=== PATIENT | female | born 1990 | race American Indian/Alaskan Native ===

== ENCOUNTER 2019-09-25 19:48 | Emergency (ER) | payer MEDICARE ==
--- NOTE | 2019-09-25 20:23 | Emergency Department Report ---
ED Abdominal Pain HPI - General Chief Complaint: Abdominal Pain Stated Complaint: GENERAL ILLNESS Time Seen by Provider: 09/25/19 20:09 Source: patient, family Mode of arrival: Ambulatory Limitations: No Limitations - History of Present Illness Initial Comments: This is a 29-year-old female here complaining of urinary urgency and abdominal pain that is been ongoing for a week. She reports that she has been having nausea on and off and report possible because her last menstrual period was supposed to be 2 weeks ago. Report fever and left hip pain. Report back pain. Pain is 10 out of 10 crampy to back and abdomen. Denies taking any medication for pain. Pain is intermittent and she reports that she might be or has a urinary tract infection. Denies any cough, runny nose, chest pain or shortness of breath. Denies any sore throat or neck pain or stiffness. Denies any vomiting or diarrhea. MD Complaint: abdominal pain Onset/Timin -: week(s) Location: suprapubic Radiation: none Migration to: no migration Severity: severe Severity scale (0 -10): 10 Quality: cramping Consistency: intermittent Improves With: nothing Worsens With: nothing Context: other (Possible or UTI) Associated Symptoms: nausea, fever, chills, other (Urine urgency). denies: vomiting, diarrhea, constipation, dysuria, hematemesis, hematochezia, melena, hematuria, anorexia, syncope Treatments Prior to Arrival: other (None) - Related Data Previous Rx's Medication Instructions Recorded Last Taken Type Ibuprofen [Motrin] 800 mg PO Q8HR PRN #12 tablet 09/25/19 Unknown Rx Ondansetron [Zofran ODT TAB] 8 mg PO Q8HR PRN #12 tab.rapdis 09/25/19 Unknown Rx Sulfamethoxazole/Trimethoprim 1 each PO BID 7 Days #14 tablet 09/25/19 Unknown Rx [Bactrim DS TAB] Allergies Allergy/AdvReac Type Severity Reaction Status Date / Time No Known Allergies Allergy Unverified 09/25/19 19:56 ED Review of Systems ROS: Stated complaint: GENERAL ILLNESS Other details as noted in HPI ED Past Medical Hx - Past Medical History Previous Medical History?: Yes Additional medical history: 2 ovarian cysts - Surgical History Past Surgical History?: Yes Additional Surgical History: ovarian cyst removal x 2 - Social History Smoking Status: Never Smoker Substance Use Type: Marijuana - Medications Home Medications: Home Medications Medication Instructions Recorded Confirmed Last Taken Type Ibuprofen [Motrin] 800 mg PO Q8HR PRN #12 tablet 09/25/19 Unknown Rx Ondansetron [Zofran ODT TAB] 8 mg PO Q8HR PRN #12 tab.rapdis 09/25/19 Unknown Rx Sulfamethoxazole/Trimethoprim 1 each PO BID 7 Days #14 tablet 09/25/19 Unknown Rx [Bactrim DS TAB] ED Physical Exam - General Limitations: No Limitations ED Course Vital Signs 09/25/19 09/25/19 09/25/19 19:51 20:40 20:46 Temperature 101.7 F H Pulse Rate 112 H Respiratory 18 18 18 Rate Blood Pressure 124/77 Blood Pressure [Left] O2 Sat by Pulse 100 Oximetry 09/25/19 09/25/19 21:50 22:31 Temperature 99.2 F Pulse Rate 123 H 100 H Respiratory 18 Rate Blood Pressure Blood Pressure 104/60 [Left] O2 Sat by Pulse 96 Oximetry Vital Signs 09/25/19 09/25/19 09/25/19 19:51 20:40 20:46 Temperature 101.7 F H Pulse Rate 112 H Respiratory 18 18 18 Rate Blood Pressure 124/77 Blood Pressure [Left] O2 Sat by Pulse 100 Oximetry 09/25/19 21:50 Temperature 99.2 F Pulse Rate 123 H Respiratory 18 Rate Blood Pressure Blood Pressure 104/60 [Left] O2 Sat by Pulse 96 Oximetry Vital Signs 09/25/19 09/25/19 09/25/19 19:51 20:40 20:46 Temperature 101.7 F H Pulse Rate 112 H Respiratory 18 18 18 Rate Blood Pressure 124/77 Blood Pressure [Left] O2 Sat by Pulse 100 Oximetry 09/25/19 09/25/19 21:50 22:31 Temperature 99.2 F Pulse Rate 123 H 100 H Respiratory 18 Rate Blood Pressure Blood Pressure 104/60 [Left] O2 Sat by Pulse 96 Oximetry - Reevaluation(s) Reevaluation #1: 09/25/19 21:45 Patient here with abdominal pain. She is also here with urinary urgency and report that her urine was discolored. She was given Tylenol 975 mg for elevated temperature. Morphine 4 mg IV and Zofran 8 mg IV given. Patient received 1 L of normal saline. Influenza negative, CBC with white count elevated and bacterial shift to the left. test is negative. Her pain is controlled and abdominal exam is normal at present. Reevaluation #2: 09/25/19 22:30 Patient urinary tract infection and received 1 g of ceftriaxone IV. She is feeling better. Vital signs stable she is afebrile and she is in no acute distress at present. Heart rate has stabilized. Patient is pain-free and denies any nausea or vomiting. ED Medical Decision Making - Lab Data Result diagrams: 09/25/19 21:03 09/25/19 21:03 Labs 09/25/19 09/25/19 09/25/19 21:03 21:03 21:03 WBC 15.9 H RBC 4.01 Hgb 11.7 Hct 35.8 MCV 89 MCH 29 MCHC 33 RDW 14.0 Plt Count 251 Lymph % (Auto) 9.4 L Cassia % (Auto) 8.3 H Eos % (Auto) 0.1 Baso % (Auto) 0.4 Lymph # 1.5 Cassia # 1.3 H Eos # 0.0 Baso # 0.1 Seg Neutrophils % 81.8 H Seg Neutrophils # 13.0 H Sodium 136 L Potassium 3.6 Chloride 99.7 Carbon Dioxide 24 Anion Gap 16 BUN 9 Creatinine 0.8 Estimated GFR > 60 BUN/Creatinine Ratio 11 Glucose 93 Calcium 8.5 Total Bilirubin 0.50 AST 18 ALT 12 Alkaline Phosphatase 88 Total Protein 6.4 Albumin 3.5 L Albumin/Globulin Ratio 1.2 Lipase 20 HCG, Qual Negative Urine Color Urine Turbidity Urine pH Ur Specific Hopkins Urine Protein Urine Glucose (UA) Urine Ketones Urine Blood Urine Nitrite Urine Bilirubin Urine Urobilinogen Ur Leukocyte Esterase Urine WBC (Auto) Urine RBC (Auto) U Epithel Cells (Auto) Urine Bacteria (Auto) Urine Mucus Influenza A (Rapid) Influenza B (Rapid) 09/25/19 09/25/19 Unknown Unknown WBC RBC Hgb Hct MCV MCH MCHC RDW Plt Count Lymph % (Auto) Cassia % (Auto) Eos % (Auto) Baso % (Auto) Lymph # Cassia # Eos # Baso # Seg Neutrophils % Seg Neutrophils # Sodium Potassium Chloride Carbon Dioxide Anion Gap BUN Creatinine Estimated GFR BUN/Creatinine Ratio Glucose Calcium Total Bilirubin AST ALT Alkaline Phosphatase Total Protein Albumin Albumin/Globulin Ratio Lipase HCG, Qual Urine Color Yellow Urine Turbidity Cloudy Urine pH 6.0 Ur Specific Hopkins 1.013 Urine Protein 30 mg/dl Urine Glucose (UA) Neg Urine Ketones Neg Urine Blood Mod Urine Nitrite Pos Urine Bilirubin Neg Urine Urobilinogen < 2.0 Ur Leukocyte Esterase Lg Urine WBC (Auto) > 182.0 H Urine RBC (Auto) 15.0 U Epithel Cells (Auto) 11.0 Urine Bacteria (Auto) 3+ Urine Mucus Few Influenza A (Rapid) Negative Influenza B (Rapid) Negative Urine culture sent - Medical Decision Making This is a 29-year-old female came with abdominal pain to her lower quadrant, nausea and back pain and urinary urgency and this has been going on for about a week. CBC showed elevated white count with shift to the left. Urinalysis positive for urinary tract infection and test is negative. Patient given IV fluid normal saline, IV Rocephin in emergency room. She was also given morphine 4 mg IV and Zofran 8 mg IV which relieved her nausea and abdominal pain. Her vital signs are stable and she says she is feeling better. Patient discharged home in stable condition with her family with prescription for Bactrim, Zofran and Motrin. She is to follow-up with [facility] in 2 days - Differential Diagnosis Ectopic , pyelonephritis, acute cystitis, Critical care attestation.: If time is entered above; I have spent that time in minutes in the direct care of this critically ill patient, excluding procedure time. ED Disposition Clinical Impression: Abdominal pain Qualifiers: Abdominal location: lower abdomen, unspecified Qualified Code(s): R10.30 - Lower abdominal pain, unspecified Acute cystitis Qualifiers: Hematuria presence: with hematuria Qualified Code(s): N30.01 - Acute cystitis with hematuria Leukocytosis Qualifiers: Leukocytosis type: unspecified Qualified Code(s): D72.829 - Elevated white blood cell count, unspecified Disposition: DC- TO HOME OR SELFCARE Is pt being admited?: No Does the pt Need Aspirin: No Condition: Stable Instructions: Urinary Tract Infection in Women (ED), Leukocytosis (ED), Abdominal Pain (ED) Additional Instructions: Please follow-up with primary care physician in 2 days and if your condition worsens return to the emergency room. See discharge instruction on abdominal pain, urinary tract infection Take medication as prescribed. Please keep hydrated by drinking plenty of fluid to include cranberry juice You will need a repeat urinalysis in 7 days. Prescriptions: Sulfamethoxazole/Trimethoprim [Bactrim DS TAB] 1 each PO BID 7 Days #14 tablet Ibuprofen [Motrin] 800 mg PO Q8HR PRN #12 tablet PRN Reason: pain Ondansetron [Zofran ODT TAB] 8 mg PO Q8HR PRN #12 tab.rapdis PRN Reason: Nausea And Vomiting Referrals: Follow-up at, [facility] primary care [Other] - 09/27/19
[2019-09-25] MEDS ORDERED: ACETAMINOPHEN 325 MG TAB PO ONE (20:25)
[2019-09-25] MEDS ORDERED: ONDANSETRON 4 MG/2 ML INJ IV ONE (20:25)
[2019-09-25] MEDS ORDERED: SODIUM CHLORIDE 0.9% 1000 ML 1,000 ML IV ONE (20:25)
[2019-09-25] MEDS ORDERED: MORPHINE 4 MG/1 ML INJ IV ONE (20:25)
[2019-09-25 20:47] LABS: Bacteria,Urine 3+ /HPF (Negative); Bilirubin,Urine NEG (Negative); Blood,Urine MOD (Negative); Color,Urine Yellow (Yellow); Mucus,Urine FEW /HPF; Urobilinogen,Urine < 2.0 mg/dL (<2.0)
[2019-09-25 20:48] LABS: WBC,Urine > 182.0 /HPF (0.0-6.0)
[2019-09-25 21:27] LABS: Basophils # (Auto) 0.1 K/mm3 (0.0-0.1); Basophils % (Auto) 0.4 % (0.0-1.8); Eosinophils % (Auto) 0.1 % (0.0-4.3); Hematocrit 35.8 % (30.3-42.9); Hemoglobin 11.7 gm/dl (10.1-14.3); Lymphocytes # (Auto) 1.5 K/mm3 (1.2-5.4); Lymphocytes % (Auto) 9.4 % (13.4-35.0); Mean Corpuscular HGB Conc 33 % (30-34); Mean Corpuscular Volume 89 fl (79-97); Monocytes # (Auto) 1.3 K/mm3 (0.0-0.8); Monocytes % (Auto) 8.3 % (0.0-7.3); Platelet Count 251 K/mm3 (140-440); Red Blood Count 4.01 M/mm3 (3.65-5.03)
[2019-09-25] MEDS ORDERED: cefTRIAXone/NS 1 GM/50 ML 1 GM/50 ML BAG IV ONE (21:37)
[2019-09-25 21:50] LABS: Alanine Aminotransferase 12 units/L (7-56); Albumin 3.5 g/dL (3.9-5); BUN/Creatinine Ratio 11; Blood Urea Nitrogen 9 mg/dL (7-17); Calcium 8.5 mg/dL (8.4-10.2); Hemolysis Index 2
[2019-09-25 21:56] VITALS: BP 104/60
== END 2019-09-25 22:40 | disposition home or self-care (01) ==
LOC: EDBD → ED 19:48
DX: N30.00 Acute cystitis without hematuria (principal); D72.829 Elevated white blood cell count, unspecified; R10.30 Lower abdominal pain, unspecified; N83.209 Unspecified ovarian cyst, unspecified side; F12.10 Cannabis abuse, uncomplicated; Z98.890 Other specified postprocedural states; Z79.1 Long term (current) use of non-steroidal anti-inflammatories (NSAID); Z79.899 Other long term (current) drug therapy
CPT/HCPCS: 36415; 80053; 81001; 83690; 84703; 85025; 87076; 87086; 87186; 87400; 96365; 96375; 99283; J0696; J2270; J2405; J7030; 96361